=== PATIENT | female | born 1950 | race Caucasian/White ===

== ENCOUNTER → 2016-08-17 | Outpatient (CLI) | payer MEDICAID ==
[2016-08-17 14:14] LABS: HEMOGLOBIN 13.7 g/dL (12.2-16.2); LYMPH # 2.1 K/mm3 (0.7-4.5)
[2016-08-17 14:16] LABS: BUN 27 mg/dL (7-18)
[2016-08-17 14:19] LABS: GFR (ESTIMATED) 50 ML/MIN (59-)
[2016-08-19 08:55] LABS: Creatinine, Urine 71.1 mg/dL (Not Estab.); Microalbumin, Urine 3.5 ug/mL (Not Estab.); Vitamin D, 25-Hydroxy 23.6 ng/mL (30.0-100.0)
[2016-08-19 09:41] LABS: Folate (Folic Acid) 14.7 ng/mL (>3.0)
== END ==
LOC: LAB 13:40
PROVIDERS: Physician Assistant
DX: E55.9 Vitamin D deficiency, unspecified (principal); I10 Essential (primary) hypertension; E11.9 Type 2 diabetes mellitus without complications; G62.9 Polyneuropathy, unspecified; E03.9 Hypothyroidism, unspecified; E78.5 Hyperlipidemia, unspecified

== ENCOUNTER → 2016-08-26 | Outpatient (CLI) | payer MEDICAID ==
--- NOTE | 2016-08-30 20:48 | RADIOLOGY REPORT PS360 ---
DIG MAMM-SCREEN ERNIE W/CAD CAD Screening COMPARISON: None, this is baseline INDICATION: There is a history of breast cancer in patient's daughter diagnosed at age 44 TECHNIQUE: Standard CC and MLO images were obtained. R2 CAD reviewed. FINDINGS: Moderate fibroglandular densities are seen in the central portions of both breasts and the findings are bilateral and symmetrical. There are few benign-appearing calcifications in each breast. There is no suspicious lesion in either breast and there are no suspicious microcalcifications. IMPRESSION: Moderate breast density with no suspicious lesion seen recommend yearly follow-up BI-RADS CATEGORY: 2_Benign RECOMMENDED FOLLOWUP: 12M 12 MONTH FOLLOW-UP (A letter has been sent to the patient regarding results of the study.)
== END ==
LOC: RAD 08:45
DX: Z12.31 Encounter for screening mammogram for malignant neoplasm of breast (principal)
CPT/HCPCS: G0202